=== PATIENT | male | born 1980 | race Caucasian/White ===

== ENCOUNTER → 2021-05-23 | Outpatient (CLI) | payer OTHER ==
--- NOTE | 2021-05-23 09:36 | Diagnostic Imaging Report ---
INDICATION: Left upper quadrant pain, history of splenomegaly. TECHNIQUE: Multiple real-time simmons scale sonographic images of the abdomen. CORRELATION STUDY: None FINDINGS: LIVER: Normal echotexture within the visualized portions of the liver. There is normal, hepatopedal direction of flow within the main portal vein. Liver length of 17.9 cm. GALLBLADDER: No shadowing gallstones or pericholecystic fluid. COMMON BILE DUCT: Nondilated at 0.5 cm. PANCREAS: Limited in visualization. The visualized portions appearing unremarkable. SPLEEN: Splenic size within normal limits at 11.6 x 5.7 x 5.6 cm. ABDOMINAL AORTA: Unremarkable. INFERIOR VENA CAVA: Limited in visualization. RIGHT KIDNEY: 9.2 x 5.9 x 5.3 cm. Unremarkable. LEFT KIDNEY: 9.6 x 5.1 x 5.5 cm. Unremarkable. OTHER: None. IMPRESSION: 1. Unremarkable-appearing abdominal ultrasound evaluation. Currently normal sized spleen. Dictated by: Dictated on workstation # [id number]
== END ==
LOC: RAD 08:26
PROVIDERS: ATTEND Internal Medicine
DX: R10.12 Left upper quadrant pain (principal); Z86.2 Personal history of diseases of the blood and blood-forming organs and certain disorders involving the immune mechanism
CPT/HCPCS: 76700

== ENCOUNTER 2021-07-11 10:32 | Outpatient (CLI) | payer OTHER | END 2021-07-11 10:48 | LOC: SLEEP 10:32 | PROVIDERS: ATTEND Nurse Practitioner | DX: G47.33 Obstructive sleep apnea (adult) (pediatric) (principal) | CPT/HCPCS: G0399 ==